=== PATIENT | female | born 1945 | race Caucasian/White ===

== ENCOUNTER 2021-03-31 10:33 | Emergency (ER) | payer OTHER ==
--- NOTE | 2021-03-31 13:06 | RAD REPORT ---
EXAM DESCRIPTION: RAD - Foot Left 3 View - 03/31/2021 12:48 pm CLINICAL HISTORY: Pain;Swelling COMPARISON: No comparisons FINDINGS: No left foot fracture is identified. No malalignment. No focal degenerative changes. IMPRESSION: No acute osseus abnormality involving the left foot.
--- NOTE | 2021-03-31 14:09 | ER ---
Nurse's Notes [facility] Name: Shayla Godinez Age: 75 yrs Sex: Female : 1945 Arrival Date: 03/31/2021 Time: 10:35 Bed 12 Private MD: Diagnosis: Pain in left foot Presentation: 03/31 11:42 Chief complaint: Patient states: slipped and fell at home and hurt left foot, happened iw this morning , bruising noted left great toe. Coronavirus screen: At this time, the client does not indicate any symptoms associated with coronavirus-19. Ebola Screen: Patient negative for fever greater than or equal to 101.5 degrees Fahrenheit, and additional compatible Ebola Virus Disease symptoms Patient denies exposure to infectious person. Patient denies travel to an Ebola-affected area in the 21 days before illness onset. No symptoms or risks identified at this time. Initial Sepsis Screen: Does the patient meet any 2 criteria? No. Patient's initial sepsis screen is negative. Does the patient have a suspected source of infection? No. Patient's initial sepsis screen is negative. Risk Assessment: Do you want to hurt yourself or someone else? Patient reports no desire to harm self or others. Onset of symptoms was March 31, 2021. 11:42 Method Of Arrival: Wheelchair iw 11:42 Acuity: FABY 4 iw Triage Assessment: 14:25 General: Appears in no apparent distress. uncomfortable, Behavior is calm, cooperative, ap3 appropriate for age. Pain: Denies pain. Historical: - Allergies: 11:43 Anaprox; iw - PMHx: 11:43 High Cholesterol; Hypertension; iw - Immunization history:: Adult Immunizations unknown. - Social history:: Smoking status: unknown. Screenin:25 Abuse screen: Denies threats or abuse. Nutritional screening: No deficits noted. ap3 Tuberculosis screening: No symptoms or risk factors identified. Fall Risk Fall in past 12 months (25 points). Secondary diagnosis (15 points) impaired mobility, No IV (0 pts). Ambulatory Aid- Crutches/Cane/Walker (15 pts). Gait- Weak (10 pts.). Mental Status- Oriented to own ability (0 pts). Total Moore Fall Scale indicates High Risk Score (45 or more points). Fall prevention measures have been instituted. Side Rails Up X 2 Placed Close to Nursing Station Frequent Obs/Assessments Occuring Family Present and informed to notify staff if the need to leave the bedside As available patient and family educated on Fall Prevention Program and Strategies. Vital Signs: 11:44 BP 157 / 68; Pulse 63; Resp 16; Temp 97.5; Pulse Ox 100% on R/A; iw ED Course: 10:35 Patient arrived in ED. ds1 11:05 Ryder Jimenez MD is Attending Physician. kdr 11:43 Triage completed. iw 11:43 Arm band placed on. iw 12:48 Foot Left 3 View XRAY In Process Unspecified. EDMS 14:21 Shad wrap to left ankle. mt 14:25 No provider procedures requiring assistance completed. Patient did not have IV access ap3 during this emergency room visit. 14:26 Patient has correct armband on for positive identification. ap3 Administered Medications: No medications were administered Outcome: 14:08 Discharge ordered by . kdr 14:25 Discharged to home via wheelchair, with family. ap3 14:25 Condition: good 14:25 Discharge instructions given to patient, Instructed on discharge instructions, follow up and referral plans. medication usage, Demonstrated understanding of instructions, follow-up care, medications, Prescriptions given X 2. 14:26 Patient left the ED. ap3 Signatures: Dispatcher [employer] EDMN Ryder Jimenez MD MD [facility] Lisa Yoder ds1 Parul Hearn, RN Mariposa Holden mt, Amanda RN RN ap3
--- NOTE | 2021-03-31 14:09 | EDPHYS ---
Physician Documentation [facility] Name: Shayla Godinez Age: 75 yrs Sex: Female : 1945 Arrival Date: 03/31/2021 Time: 10:35 Bed 12 Private MD: ED Physician Ryder Jimenez HPI: 03/31 17:20 This 75 yrs old Female presents to ER via Wheelchair with complaints of Toe kdr Injury. 17:20 The patient presents with a contusion, decreased range of motion, an injury, pain, that kdr is acute, tenderness. The complaints affect the left foot. Context: The problem was sustained at home, resulted from stubbing toe on the patient tripping, Patient slipped on the floor. Onset: The symptoms/episode began/occurred suddenly, at 09:30. Modifying factors: The symptoms are alleviated by nothing, the symptoms are aggravated by weight bearing, movement. Associated signs and symptoms: The patient has no apparent associated signs or symptoms. Severity of symptoms: At their worst the symptoms were mild, in the emergency department the symptoms are unchanged. The patient has not experienced similar symptoms in the past. The patient has not recently seen a physician. Historical: - Allergies: 11:43 Anaprox; iw - PMHx: 11:43 High Cholesterol; Hypertension; iw - Immunization history:: Adult Immunizations unknown. - Social history:: Smoking status: unknown. ROS: 17:20 Constitutional: Negative for fever, chills, and weight loss, Eyes: Negative for injury, kdr pain, redness, and discharge, Neck: Negative for injury, pain, and swelling, Cardiovascular: Negative for chest pain, palpitations, and edema, Respiratory: Negative for shortness of breath, cough, wheezing, and pleuritic chest pain, Abdomen/GI: Negative for abdominal pain, nausea, vomiting, diarrhea, and constipation, Back: Negative for injury and pain, : Negative for injury, bleeding, discharge, and swelling, Skin: Negative for injury, rash, and discoloration, Neuro: Negative for headache, weakness, numbness, tingling, and seizure activity. Psych: Negative for depression, anxiety, suicide ideation, homicidal ideation, and hallucinations, Allergy/Immunology: Negative for hives, rash, and allergies, Endocrine: Negative for neck swelling, polydipsia, polyuria, polyphagia, and marked weight changes, Hematologic/Lymphatic: Negative for swollen nodes, abnormal bleeding, and unusual bruising. 17:20 MS/extremity: Positive for injury or acute deformity, decreased range of motion, pain, tenderness, of the left first toe. Exam: 17:20 Constitutional: This is a well developed, well nourished patient who is awake, alert, kdr and in no acute distress. Head/Face: Normocephalic, atraumatic. Eyes: Pupils equal round and reactive to light, extra-ocular motions intact. Lids and lashes normal. Conjunctiva and sclera are non-icteric and not injected. Cornea within normal limits. Periorbital areas with no swelling, redness, or edema. Chest/axilla: Normal chest wall appearance and motion. Nontender with no deformity. No lesions are appreciated. Cardiovascular: Regular rate and rhythm with a normal S1 and S2. No gallops, murmurs, or rubs. Normal PMI, no JVD. No pulse deficits. Respiratory: Lungs have equal breath sounds bilaterally, clear to auscultation and percussion. No rales, rhonchi or wheezes noted. No increased work of breathing, no retractions or nasal flaring. Abdomen/GI: Soft, non-tender, with normal bowel sounds. No distension or tympany. No guarding or rebound. No evidence of tenderness throughout. Back: No spinal tenderness. No costovertebral tenderness. Full range of motion. 17:20 Musculoskeletal/extremity: Weight bearing: can bear weight with assistance only. 17:20 Skin: injury, contusion(s), that are superficial. Vital Signs: 11:44 BP 157 / 68; Pulse 63; Resp 16; Temp 97.5; Pulse Ox 100% on R/A; iw MDM: 14:08 Patient medically screened. kdr 17:20 Data reviewed: vital signs, nurses notes, lab test result(s), radiologic studies. kdr Counseling: I had a detailed discussion with the patient and/or guardian regarding: the historical points, exam findings, and any diagnostic results supporting the discharge/admit diagnosis, lab results, radiology results, the need for outpatient follow up. 03/31 11:44 Order name: Foot Left 3 View XRAY; Complete Time: 14:06 iw 03/31 14:16 Order name: Crutch Training; Complete Time: 14:21 kdr 03/31 14:16 Order name: Crutches; Complete Time: 14: kdr 03/31 14:16 Order name: Shad Wrap: left foot; Complete Time: : kdr Administered Medications: No medications were administered Disposition Summary: 03/31/21 14:08 Discharge Ordered Location: Home kdr Problem: new kdr Symptoms: have improved kdr Condition: Stable kdr Diagnosis - Pain in left foot kdr Followup: kdr - With: Private Physician - When: 2 - 3 days - Reason: If symptoms return, Further diagnostic work-up, Recheck today's complaints, Continuance of care, Re-evaluation by your physician Discharge Instructions: - Discharge Summary Sheet kdr - Foot Pain kdr Forms: - Medication Reconciliation Form kdr - Thank You Letter kdr Prescriptions: - Ibuprofen 600 mg Oral Tablet - take 1 tablet by ORAL route every 6 hours As needed take with food; 12 tablet; kdr Refills: 0, Product Selection Permitted Signatures: Dispatcher [employer] Ryder Wilkins MD MD kdr Williams, Irene RN Emma Swartz RN RN ap3
[2021-03-31 14:35] VITALS: BP 157/68; TEMP 97.5; O2SAT 100
== END 2021-03-31 14:26 | disposition home or self-care (01) ==
LOC: ER 10:33
DX: M79.672 Pain in left foot (principal); I10 Essential (primary) hypertension; Z88.8 Allergy status to other drugs, medicaments and biological substances
CPT/HCPCS: 99283

== ENCOUNTER 2025-05-13 19:30 | Emergency (ER) | payer OTHER ==
[2025-05-13] MEDS ORDERED: NA CHLORIDE 0.9% 1,000 ML ONE (20:17)
[2025-05-13 20:41] LABS: Absolute Lymphocytes (CBC) 3.1 K/uL (0.7-4.9); Hematocrit 34.2 % (36.0-45.0); Hemoglobin 11.0 g/dL (12.0-15.0); MCH 20.9 pg (27.0-35.0); MCHC 32.1 g/dL (32.0-36.0); MCV 65.1 fL (80-100); MPV 9.7 fL (7.6-11.3); Nucleated RBC Absolute Count 0.0 (0-0); Nucleated Red Blood Cells % 0.1 % (0-0); RBC Red Blood Cell Count 5.26 M/uL (3.86-4.86); White Blood Count 9.60 thou/uL (4.3-10.9)
[2025-05-13 20:46] LABS: Blood Morphology Comment NOTED (NOT SEEN); White Blood Cell Scan OK (OK)
[2025-05-13 20:47] LABS: Hypochromasia 1+; Microcytosis 1+
--- NOTE | 2025-05-13 20:47 | RAD REPORT ---
EXAM: CT brain without contrast HISTORY: near syncope, dizziness while driving COMPARISON: None TECHNIQUE: Multiple contiguous axial images were obtained and a CT of the brain without contrast. Sag ittal and coronal reformats were performed. One or more of the following dose reduction techniques were used: Automated exposure control, adjust ment of the mA and/or kV according to patient size, and/or iterative reconstruction. FINDINGS: No evidence of hydrocephalus, intracranial hemorrhage, or extra-axial fluid collection. Mild brain atrophy with mild periventricular and deep white matter chronic microvascular ischemic ch anges present. No evidence of midline shift or areas of brain edema. The calvarium is intact. The visualized paranasal sinuses and mastoid air cells are essentially clear . IMPRESSION: No evidence of acute intracranial abnormality.
[2025-05-13 20:52] LABS: PT Prothrombin Time 11.8 SECONDS (10-13.0); Protime INR 1.05
[2025-05-13 21:02] LABS: Sqamous Epithelial <5 /HPF (None Seen); Urine Culture Reflex Order NOT NEEDED; Urine Microscopic Reflex YN ORDER UMIC
[2025-05-13 21:14] LABS: ALT/SGPT 24.0 U/L (13-56); AST/SGOT 19.0 U/L (15-37); Albumin 3.6 g/dL (3.4-5.0); Albumin/Globulin Ratio 1.1 (1.1-1.8); Alkaline Phosphatase 92.0 U/L (45-117); Anion Gap 9.3 mEq/L (5.0-15.0); BUN Blood Urea Nitrogen 48.0 mg/dL (7-18); Bilirubin Indirect, Calculated 0.5 mg/dL (0.2-0.8); Globulin 3.4 g/dL (2.3-3.5); Glucose Level 103.0 mg/dL (74-106); Magnesium 2.1 mg/dL (1.6-2.4); NT PRO-BNP 144.0 pg/mL (<450); Potassium 4.3 mEq/L (3.5-5.1); Troponin High Sensitivity 7.9 pg/mL (<58.9)
--- NOTE | 2025-05-13 21:21 | RAD REPORT ---
EXAMINATION: ONE VIEW CHEST XR CLINICAL INDICATION: near syncope TECHNIQUE: Frontal chest projection is submitted. Examination is limited by patient positioning and t echnique. COMPARISON: 08/23/2017 FINDINGS: The lungs are well inflated and clear. The heart is upper limit of normal in size. No displaced fract ures identified. IMPRESSION: No acute intrathoracic abnormalities.
--- NOTE | 2025-05-13 21:48 | ER ---
Nurse's Notes [facility] Name: Shayla Godinez Age: 79 yrs Sex: Female : 1945 Arrival Date: 05/13/2025 Time: 19:30 Bed 18 Private MD: Diagnosis: Dehydration, prerenal azotemia, renal insufficiency Presentation: 05/13 20:05 Chief complaint: Patient states: About 7 pm patient was driving and had an episode of me1 dizziness with near syncope. Pulled over and while waiting for family to come had multiple more episodes of dizziness. Drank 1/2 bottle of propel and seems to have helped. Reports that throughout the day today she felt off balance. Coronavirus screen: Vaccine status: Patient reports receiving the 2nd dose of the covid vaccine. Ebola Screen: No symptoms or risks identified at this time. Initial Sepsis Screen: Does the patient meet any 2 criteria? No. Patient's initial sepsis screen is negative. Does the patient have a suspected source of infection? No. Patient's initial sepsis screen is negative. Risk Assessment: Do you want to hurt yourself or someone else? Patient reports no desire to harm self or others. Onset of symptoms was May 13, 2025 at 19:00. 20:05 Method Of Arrival: Wheelchair me1 20:05 Acuity: FABY 3 me1 Historical: - Allergies: 20:08 Anaprox; me1 - PMHx: 20:08 High Cholesterol; Hypertension; me1 - PSHx: 20:08 section; Total abdominal hysterectomy; ankle surgery; me1 - Immunization history:: Adult Immunizations up to date. - Infectious Disease History:: Denies. - Social history:: Smoking status: Patient denies any tobacco usage or history of. Screenin:15 [facility] ED Fall Risk Assessment (Adult) History of falling in the last 3 months, rg5 including since admission No falls in past 3 months (0 pts) Confusion or Disorientation No (0 pts) Intoxicated or Sedated No (0 pts) Impaired Gait No (0 pts) Mobility Assist Device Used No (0 pt) Altered Elimination No (0 pt) Score/Fall Risk Level 0 - 2 = Low Risk Oriented to surroundings, Maintained a safe environment, Hourly rounding (assess needs \T\ fall precautionary measures) done. Abuse screen: Denies threats or abuse. Nutritional screening: No deficits noted. Tuberculosis screening: No symptoms or risk factors identified. Assessment: 20:15 General: Appears in no apparent distress. Behavior is calm, cooperative, appropriate rg5 for age. 20:15 Pain: Denies pain. Neuro: Level of Consciousness is awake, alert, obeys commands, rg5 Oriented to person, place, time, situation, Reports dizziness. Cardiovascular: Denies chest pain, Patient's skin is warm and dry. Rhythm is sinus rhythm. Respiratory: Airway is patent Respiratory effort is even, unlabored. GI: Abdomen is round non-distended. : No signs and/or symptoms were reported regarding the genitourinary system. EENT: No signs and/or symptoms were reported regarding the EENT system. Derm: Skin is intact, Skin is dry, Skin is normal, Skin temperature is warm. Musculoskeletal: Circulation, motion, and sensation intact. Range of motion: intact in all extremities. 21:34 Reassessment: Patient and/or family updated on plan of care and expected duration. Pain rg5 level reassessed. Patient is alert, oriented x 3, equal unlabored respirations, skin warm/dry/pink. Patient states feeling better. Patient states symptoms have improved. 22:13 Reassessment: No changes from previously documented assessment. Patient and/or family rg5 updated on plan of care and expected duration. Pain level reassessed. Patient is alert, oriented x 3, equal unlabored respirations, skin warm/dry/pink. Vital Signs: 20:05 BP 141 / 78; Pulse 80; Resp 17; Temp 98.5; Pulse Ox 100% ; Weight 81.65 kg; Height 5 me1 ft. 5 in. ; Pain 0/10; 20:21 BP 156 / 77; Pulse 85; Resp 18; Pulse Ox 99% ; Pain 0/10; rg5 21:30 BP 151 / 73; Pulse 77; Resp 18; Pulse Ox 100% ; Pain 0/10; rg5 22:10 BP 143 / 70; Pulse 75; Resp 17; Pulse Ox 100% ; Pain 0/10; rg5 20:05 Body Mass Index 29.95 (81.65 kg, 165.1 cm) me1 20:05 Pain Scale: Adult me1 20:21 Pain Scale: Adult rg5 21:30 Pain Scale: Adult rg5 22:10 Pain Scale: Adult rg5 ED Course: 19:33 Patient arrived in ED. mr 19:39 Jazmine Greer MD is Attending Physician. sp3 20:08 Triage completed. me1 20:08 Arm band placed on Patient placed in an exam room. me1 20:11 Marvin Andrea, RN is Primary Nurse. rg5 20:15 Patient has correct armband on for positive identification. Client placed on continuous rg5 cardiac and pulse oximetry monitoring. NIBP monitoring applied. aluminum siding installer on. Pulse ox on. NIBP on. Door closed. Noise minimized. Warm blanket given. 20:15 No provider procedures requiring assistance completed. rg5 20:19 Inserted saline lock: 22 gauge in left antecubital area, using aseptic technique. Blood ha1 collected. Flushed with 10 mL NS. 20:35 CT Head Brain wo Cont In Process Unspecified. EDMS 21:16 XRAY Chest (1 view) In Process Unspecified. EDMS 22:13 IV discontinued, bleeding controlled, No redness/swelling at site. Pressure dressing rg5 applied. Administered Medications: 20:30 Drug: NS 0.9% IV 1000 ml IV at 1 bolus Per protocol; to be given as a bolus over 60 rg5 minutes Route: IV; Rate: 1 bolus; Site: left antecubital; 22:00 Follow up: IV Status: Completed infusion; IV Intake: 1000ml rg5 Medication: 20:15 VIS not applicable for this client. rg5 Intake: 22:00 IV: 1000ml; Total: 1000ml. rg5 Outcome: 21:48 Discharge ordered by MD. sp3 22:13 Discharged to home ambulatory, rg5 22:13 Condition: stable 22:13 Discharge instructions given to patient, Instructed on discharge instructions, Demonstrated understanding of instructions, follow-up care, 22:14 Patient left the ED. rg5 Signatures: Dispatcher [employer] EDDC Kristine Burns, Reg Reg mr Jazmine rGeer MD MD sp3 Silvia Chanel, RN RN ha1 Tianna Mitchell, CHARLES RN me1 Marvin Andrea, RN RN rg5
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
[2025-05-13 22:37] VITALS: TEMP 98.5
[2025-05-13 22:39] VITALS: O2SAT 100
[2025-05-13 22:40] VITALS: BP 143/70
== END 2025-05-13 22:14 | disposition home or self-care (01) ==
LOC: ER 19:30
DX: E86.0 Dehydration (principal); R79.89 Other specified abnormal findings of blood chemistry; N28.9 Disorder of kidney and ureter, unspecified; I10 Essential (primary) hypertension
CPT/HCPCS: 93005; 85025; 81001; 80048; 36415; 83735; 85610; 80076; 84484; 83880; 70450; 71045; 96360; 99285; J7030